=== PATIENT | female | born 2000 | race Caucasian/White ===

== ENCOUNTER 2021-03-31 20:33 | Emergency (ER) | payer OTHER ==
[2021-03-31] MEDS ORDERED: HYDROmorphone 1 MG/ML Syringe IM ONE (21:13)
[2021-03-31] MEDS ORDERED: Ketorolac 60 MG/2 ML SDV IM ONE (21:13)
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
[2021-03-31] MEDS ORDERED: Ondansetron 4 MG Tab.DIS PO ONE (22:10)
--- NOTE | 2021-04-01 08:28 | CR ---
Lumbar spine: AP, lateral and coned-down lateral views were obtained centered to the lumbosacral junction. Comparison: No prior lumbar spine imaging is available. Previous surgery is noted at L3-4 and L4-5 with trans-pedicle screws. Intervertebral disc fixation is noted at L4-5. Disc space narrowing is noted at L3-4. Mild disc space narrowing is noted at L2-3. Moderate disc space narrowing is seen at L5-S1. Straightening of the lumbar curve is noted. Vertebral body heights are maintained. IUD is noted within the pelvis. No fracture or subluxation is seen. Impression: 1. Previous surgery. 2. Mild disc space narrowing as noted above. 3. IUD is noted. Nothing acute is definitely seen. Diagnostic code #2 I agree with preliminary report from [facility], finalized on 03/31/21, 11:48 PM CDT, code 1
== END 2021-03-31 23:06 | disposition home or self-care (01) ==
LOC: JD.ED 20:33
DX: M54.5 Low back pain (principal)
CPT/HCPCS: 72100; 81001; 96372; 99283; A9270; J1170; J1885